=== PATIENT | female | born 1965 | race Caucasian/White ===

== ENCOUNTER → 2021-04-15 | Outpatient (CLI) | payer MEDICAID, OTHER | END | disposition home or self-care (01) | LOC: CARD 09:24 | DX: G82.20 Paraplegia, unspecified (principal); G62.9 Polyneuropathy, unspecified; R29.898 Other symptoms and signs involving the musculoskeletal system | CPT/HCPCS: 95886; 95909 ==

== ENCOUNTER → 2021-04-18 | Outpatient (CLI) | payer OTHER, MEDICAID ==
[~2021-04-18] MED LIST: GADOTERATE 5 MMOL/10ML SYR ONE; GADOTERATE 7.5 MMOL/15ML SYR ONE
== END | disposition home or self-care (01) ==
LOC: RAD 07:28
DX: R90.89 Other abnormal findings on diagnostic imaging of central nervous system (principal); R29.898 Other symptoms and signs involving the musculoskeletal system; G62.9 Polyneuropathy, unspecified
CPT/HCPCS: 70553; 72157; A9575

== ENCOUNTER 2021-06-01 08:29 | Outpatient (CLI) | payer OTHER, MEDICAID | END 2021-06-01 23:59 | disposition home or self-care (01) | LOC: RAD 08:29 | PROVIDERS: ATTEND Internal Medicine Geriatric Medicine | DX: Z02.9 Encounter for administrative examinations, unspecified (principal) ==

== ENCOUNTER 2021-06-22 13:22 | Outpatient (CLI) | payer OTHER, MEDICAID | END 2021-06-22 23:59 | disposition home or self-care (01) | LOC: RAD 13:22 | PROVIDERS: ATTEND Internal Medicine Geriatric Medicine | DX: M75.102 Unspecified rotator cuff tear or rupture of left shoulder, not specified as traumatic (principal); M19.012 Primary osteoarthritis, left shoulder; M75.52 Bursitis of left shoulder; G89.4 Chronic pain syndrome ==